=== PATIENT | female | born 1945 | race Caucasian/White ===

== ENCOUNTER 2016-10-10 10:21 | Emergency (ER) ==
--- NOTE | 2016-10-10 11:07 | PROVIDER DOCUMENTATION ---
HPI-Syncope/Dizziness - General Source: patient - History of Present Illness-Syncope/Dizzy Prior Episodes: reports: no prior history Onset/Duration: reports: this morning Timing: reports: gone now Position/Activity at time of episode: reports: sitting, standing Symptoms prior to episode: reports: lightheaded. denies: headache, visual disturbance, nausea/vomiting, chest pain, racing heart, abdominal pain, back pain, confusion, diaphoresis, injury, recent head trauma, rapid heart beat Context: reports: other (dizzy and off balance a little) Loss of Consciousness: no loss of consciousness Location of injury. (If syncope resulted in an injury.): reports: none Current Symptoms: reports: none/feels normal Recently Seen Here or By Another Healthcare Provider: No - Dizziness Severity in ED: reports: mild Dizziness Related Current/Associated Symptoms: reports: none/feels normal Any recent trauma/injury?: reports: none Modifying Factors: improves with: nothing Patient usually:: reports: walks without assistance <Jenny Rooney - Last Filed: 10/10/16 12:24> <Twin Bradley I - Last Filed: 10/10/16 12:38> - General Chief Complaint: Dizziness Stated Complaint: B/P PROBLEMS Time Seen by Provider: 10/10/16 10:43 Allergies/Adverse Reactions: Patient Allergies Allergy/AdvReac Type Severity Reaction Status Date / Time Penicillins Allergy RASH Verified 10/10/16 10:35 Home Medications: Home Medication List Medication Instructions Recorded Confirmed Last Taken Type Levofloxacin [Levaquin] 750 mg PO DAILY #10 tablet 10/10/16 Unknown Rx Otc Allergy Med 10/10/16 Unknown History - History of Present Illness-Syncope/Dizzy Nature of Presenting Problem: Pt is 71 y/o F presents to the ED with dizziness. Pt states she woke this am with dizziness. Pt denies hx of HTN. Pt state when going to the bathroom this am she felt a little of balance. Pt denies falling. Pt states having a ear problem. Pt states after eating breakfast this am she was fine. Pt states going to job's nurse and the nurse told her, her BP was elevated. (Jenny Rooney) Review of Systems - Adult - REVIEW OF SYSTEMS - ADULT Constitutional: reports: no symptoms reported Eyes: reports: no symptoms reported Ears, Nose, Mouth & Throat: reports: no symptoms reported Cardiovascular: reports: no symptoms reported Respiratory: reports: no symptoms reported Gastrointestinal: reports: no symptoms reported Genitourinary: reports: no symptoms reported Musculoskeletal: reports: no symptoms reported Integumentary: reports: no symptoms reported Neurological: reports: dizziness/vertigo (dizziness). denies: headache/ migraines, syncope Psychiatric: reports: no symptoms reported Endocrine: reports: no symptoms reported Hematologic/Lymphatic: reports: no symptoms reported Allergic/Immunologic: reports: no symptoms reported All Other Systems: Reviewed and Negative <Margarita Rooneyomi - Last Filed: 10/10/16 12:24> Past History - Adult - PAST MEDICAL HISTORY-ADULT Review of Records: reports: Nursing Assessment Review, Medications Reviewed, Social history reviewed & non-contributory. Major Childhood Illnesses: reports: denies history Cardiovascular: reports: denies history Respiratory: reports: denies history Gastrointestinal: reports: denies history Obstetrical/Gynecological: reports: denies history Genitourinary: reports: denies history Musculoskeletal: reports: denies history Neurological: reports: denies history Endocrine/Immune: reports: denies history Other Conditions: reports: denies history - PRIOR SURGERIES/PROCEDURES Surgical/Procedure History: reports: reviewed, not pertinent - IMMUNIZATION STATUS Childhood Immunizations: See Nurse Assessment Flu Vaccine: See Nurse Assessment - FAMILY HISTORY Family History: reviewed, not pertinent - SOCIAL HISTORY Smoking: denies Substance Use: denies Living Situation: family <Jenny Rooney - Last Filed: 10/10/16 12:24> Physical Exam-General - PHYSICAL EXAM-ADULT Initial Vital Signs Reviewed: Yes - CONSTITUTIONAL General Appearance: appears well, alert, no apparent distress - EYES Eyes: PERRL/EOMI, pink conjunctivae, fundi clear, no AV nicking - HEAD, EARS, NOSE, MOUTH & THROAT HENMT: normocephalic/atraumatic, moist mucous membranes, normal ENT inspection, TMs normal, pharynx normal - NECK Neck: non-tender, full range of motion, supple, normal inspection - RESPIRATORY Respiratory: chest non-tender, lungs clear, normal breath sounds, no pleuratic chest pain, no respiratory distress, no accessory muscle use - CARDIOVASCULAR Cardiovascular: normal peripheral pulses, regular rate, rhythm, no edema, no gallop, no JVD, no murmur - GASTROINTESTINAL (ABDOMEN) Abdominal Exam: normal bowel sounds, non tender, soft, no organomegaly, no pulsatile mass - LYMPHATIC Lymphatic: no adenopathy - MUSCULOSKELETAL Back Exam: normal inspection, no CVA tenderness, no vertebral tenderness Extremity: normal range of motion, non-tender, normal gait, normal inspection, no pedal edema, no calf tenderness, normal capillary refill - SKIN Integumentary: normal color, normal turgor, warm/dry - NEUROLOGIC Neurologic: grossly normal - PSYCHIATRIC Psych/Mental Status: normal mood/affect, oriented x 3 <Jenny Rooney - Last Filed: 10/10/16 12:24> Progress - EKG 1 Time of EKG reading by physician:: 10:46 EKG Read and Signed by:: Twin Bradley EKG Interpretation (*Must complete 3 of following elements*): Abnormal ( anterior infarct, age undetermined) Rate: 91 Rhythm: normal sinus rhythm Comments: possible inferior infarct, age undetermined - CT/MRI 1 CT Study: Head Impression: Abnormal CT Results: microvasc changes, no acute abn <Jenny Rooney - Last Filed: 10/10/16 12:24> <Twin Bradley I - Last Filed: 10/10/16 12:38> - PLAN OF CARE/RESULTS Progress/Plan/Lab Results: Orders Category Date Time Status Cardiac Monitoring DIRECTED Care 10/10/16 10:43 Active Finger Stick Blood Sugar (ED) DIRECTED Care 10/10/16 10:43 Active Oxygen Therapy- ED Nursing DIRECTED Care 10/10/16 10:43 Active Saline Loc NOW Care 10/10/16 10:43 Active HEAD W/O CONTRAST [CT] Stat Exams 10/10/16 10:45 Taken ABG [RESP] Routine Lab 10/10/16 10:43 Ordered ALCOHOL BLOOD Stat Lab 10/10/16 10:46 Ordered CBC WITH ELECTRONIC DIFF [HEME] Stat Lab 10/10/16 10:46 Ordered CK PROFILE [SP CHEM] Stat Lab 10/10/16 10:46 Ordered COMPREHENSIVE METABOLIC PANEL [CHEM] Stat Lab 10/10/16 10:46 Ordered LACTATE, PLASMA [CHEM] Stat Lab 10/10/16 10:46 Ordered PT [PROTIME WITH INR PL] [COAG] Stat Lab 10/10/16 10:[address] [COAG] Stat Lab 10/10/16 10:55 Ordered TROPONIN T Stat Lab 10/10/16 10:46 Ordered URINALYSIS W/POSS RFLX CULT [URINALYSIS] Stat Lab 10/10/16 10:43 Uncollected URINE DRUG SCREEN Stat Lab 10/10/16 10:43 Uncollected Pulse Oximetry Stat Oth 10/10/16 10:43 Active EKG [EKG] Stat Ther 10/10/16 10:43 Ordered Vital Signs - 24 hr 10/10/16 10:28 Temperature 97.5 F L Pulse Rate 96 H Respiratory 20 Rate Blood Pressure 186/097 O2 Sat by Pulse 97 Oximetry Laboratory Tests 10/10/16 10/10/16 11:15 11:20 WBC 8.77 RBC 4.94 Hgb 14.7 Hct 44.1 MCV 89.3 MCH 29.8 MCHC 33.3 RDW Std Deviation 13.0 Plt Count 227 MPV 11.0 H Immature Gran % (Auto) 0.1 Lymph % (Auto) 23.4 Emanuel % (Auto) 4.3 Eos % (Auto) 0.6 Baso % (Auto) 0.5 Immature Gran # (Auto) 0.01 Lymph # (Auto) 2.05 Emanuel # (Auto) 0.38 Eos # (Auto) 0.05 Baso # (Auto) 0.04 Urine Source CLEAN CATCH Laboratory Tests 10/10/16 10/10/16 10/10/16 11:12 11:15 11:15 WBC RBC Hgb Hct MCV MCH MCHC RDW Std Deviation Plt Count MPV Immature Gran % (Auto) Neut % (Auto) Lymph % (Auto) Emanuel % (Auto) Eos % (Auto) Baso % (Auto) Immature Gran # (Auto) Neut # (Auto) Lymph # (Auto) Emanuel # (Auto) Eos # (Auto) Baso # (Auto) PT INR APTT (Factor Assay) Sodium Potassium Chloride Carbon Dioxide Anion Gap BUN Creatinine Estimated GFR/1.73 m2 BUN/Creatinine Ratio Glucose Calculated Osmolality Calcium Total Bilirubin AST ALT Alkaline Phosphatase Creatine Kinase Troponin T Total Protein Albumin Globulin Albumin/Globulin Ratio Plasma Lactate Urine Source CLEAN CATCH Cancelled Urine Color YELLOW Cancelled Urine Clarity SLIGHTLY CLOUDY A Urine Turbidity Cancelled Urine pH 7.0 Cancelled Ur Specific Roberts 1.010 Cancelled Urine Protein NEGATIVE Cancelled Ur Glucose (Stick) Cancelled Urine Ketones NEGATIVE Ur Ketones (Stick) Cancelled Urine Blood NEGATIVE Cancelled Urine Nitrite NEGATIVE Cancelled Urine Bilirubin NEGATIVE Cancelled Urine Urobilinogen NORMAL Urobilinogen Dipstick Cancelled Urine Leukocytes Cancelled Urine WBC (Auto) Cancelled Urine RBC (Auto) Cancelled U Epithel Cells (Auto) Cancelled Urine Bacteria (Auto) Cancelled Urine WBC 1+ A Urine Microscopic WBC 10-20 A Ur Epithelial Cells >10 A Urine Bacteria 2+ Urine Glucose NEGATIVE Urine Opiates Screen NONE DETECTED Ur Oxycodone Screen NONE DETECTED Urine Methadone Screen NONE DETECTED Ur Barbituates Screen NONE DETECTED Ur Tricyclics Screen NONE DETECTED Ur Phencyclidine Scrn NONE DETECTED Ur Amphetamines Screen NONE DETECTED U Methamphetamines Scrn NONE DETECTED Urine MDMA Screen NONE DETECTED U Benzodiazepines Scrn NONE DETECTED Urine Cocaine Screen NONE DETECTED U Cannabinoids Screen NONE DETECTED Plasma/Serum Ethyl Alc 10/10/16 10/10/16 10/10/16 11:20 11:20 11:20 WBC 8.77 RBC 4.94 Hgb 14.7 Hct 44.1 MCV 89.3 MCH 29.8 MCHC 33.3 RDW Std Deviation 13.0 Plt Count 227 MPV 11.0 H Immature Gran % (Auto) 0.1 Neut % (Auto) 71.1 Lymph % (Auto) 23.4 Emanuel % (Auto) 4.3 Eos % (Auto) 0.6 Baso % (Auto) 0.5 Immature Gran # (Auto) 0.01 Neut # (Auto) 6.24 Lymph # (Auto) 2.05 Emanuel # (Auto) 0.38 Eos # (Auto) 0.05 Baso # (Auto) 0.04 PT INR APTT (Factor Assay) Sodium 142 Potassium 4.1 Chloride 106 Carbon Dioxide 27 Anion Gap 9 BUN 15 Creatinine 0.7 Estimated GFR/1.73 m2 > 60 BUN/Creatinine Ratio 21 Glucose 96 Calculated Osmolality 284 Calcium 9.6 Total Bilirubin 0.40 AST 19 ALT 13 Alkaline Phosphatase 61 Creatine Kinase 135 Troponin T Total Protein 7.3 Albumin 4.5 Globulin 3.0 Albumin/Globulin Ratio 2.0 Plasma Lactate Urine Source Urine Color Urine Clarity Urine Turbidity Urine pH Ur Specific Roberts Urine Protein Ur Glucose (Stick) Urine Ketones Ur Ketones (Stick) Urine Blood Urine Nitrite Urine Bilirubin Urine Urobilinogen Urobilinogen Dipstick Urine Leukocytes Urine WBC (Auto) Urine RBC (Auto) U Epithel Cells (Auto) Urine Bacteria (Auto) Urine WBC Urine Microscopic WBC Ur Epithelial Cells Urine Bacteria Urine Glucose Urine Opiates Screen Ur Oxycodone Screen Urine Methadone Screen Ur Barbituates Screen Ur Tricyclics Screen Ur Phencyclidine Scrn Ur Amphetamines Screen U Methamphetamines Scrn Urine MDMA Screen U Benzodiazepines Scrn Urine Cocaine Screen U Cannabinoids Screen Plasma/Serum Ethyl Alc 10/10/16 10/10/16 10/10/16 11:20 11:20 11:20 WBC RBC Hgb Hct MCV MCH MCHC RDW Std Deviation Plt Count MPV Immature Gran % (Auto) Neut % (Auto) Lymph % (Auto) Emanuel % (Auto) Eos % (Auto) Baso % (Auto) Immature Gran # (Auto) Neut # (Auto) Lymph # (Auto) Emanuel # (Auto) Eos # (Auto) Baso # (Auto) PT 13.3 INR 0.98 APTT (Factor Assay) 29.8 Sodium Potassium Chloride Carbon Dioxide Anion Gap BUN Creatinine Estimated GFR/1.73 m2 BUN/Creatinine Ratio Glucose Calculated Osmolality Calcium Total Bilirubin AST ALT Alkaline Phosphatase Creatine Kinase Troponin T < 0.010 Total Protein Albumin Globulin Albumin/Globulin Ratio Plasma Lactate 0.8 Urine Source Urine Color Urine Clarity Urine Turbidity Urine pH Ur Specific Roberts Urine Protein Ur Glucose (Stick) Urine Ketones Ur Ketones (Stick) Urine Blood Urine Nitrite Urine Bilirubin Urine Urobilinogen Urobilinogen Dipstick Urine Leukocytes Urine WBC (Auto) Urine RBC (Auto) U Epithel Cells (Auto) Urine Bacteria (Auto) Urine WBC Urine Microscopic WBC Ur Epithelial Cells Urine Bacteria Urine Glucose Urine Opiates Screen Ur Oxycodone Screen Urine Methadone Screen Ur Barbituates Screen Ur Tricyclics Screen Ur Phencyclidine Scrn Ur Amphetamines Screen U Methamphetamines Scrn Urine MDMA Screen U Benzodiazepines Scrn Urine Cocaine Screen U Cannabinoids Screen Plasma/Serum Ethyl Alc (Jenny oRoney) Departure <Jenny Rooney - Last Filed: 10/10/16 12:24> - Departure Time of Disposition Order: 12:37 Certified Medical Emergency: Emergent <Twin Bradley I - Last Filed: 10/10/16 12:38> - Departure DIAGNOSIS: Dizziness, Acute labyrinthitis Disposition: HOME 01 Condition: Stable Prescriptions: Levofloxacin [Levaquin] 750 mg PO DAILY #10 tablet Referrals: None,PCP [Primary Care Provider] - Attestation - Scribe Verification/Attestation Scribe:: Jenny Rooney Acting as Scribe for:: Twin Bradley Scribe documention review:: This chart was documented by a scribe and accurately reflects the service the provider performed and the decisions made by the provider. <Jenny Rooney - Last Filed: 10/10/16 12:24> - Scribe Verification/Attestation Scribe:: Twin Bradley I Scribe documention review:: This chart was documented by a scribe and accurately reflects the service the provider performed and the decisions made by the provider. - Physician/ BE Attestation Patient care was provided by Advanced Practice Provider:: Yes Advanced Practice Provider documentation review:: The Mid-level provider documentation, treatment plan and medical decision making was reviewed by the physician who agrees with all treatment and medical decision making by the MLP. The physician spent face to face time with patient:: Yes Advanced Practice Provider documentation review:: The physician spent face to face time with this patient and agrees with all MLP documentation, treatment, and medical decision making by the MLP. See provider notes for further information. <Twin Bradley I - Last Filed: 10/10/16 12:38> Physician Attestation - Physician Attestation I, the provider, attest to the following statement:: Twin Bradley Physician documentation Attestation:: This documentation recorded by the scribe accurately reflects the service I personally performed and the decisions made by me. <Twin Bradley I - Last Filed: 10/10/16 12:38>
[2016-10-10 11:38] LABS: MANUAL DIFF NEEDED? NO
[2016-10-10 11:49] LABS: BASO% 0.5 % (0.0-0.8); EOS# 0.05 X1000 (0.0-0.7); EOS% 0.6 % (0.0-10.0); HEMATOCRIT 44.1 % (37.0-47.0); HEMOGLOBIN 14.7 g/dL (12.0-16.0); IMM GRAN# 0.01 X1000 (0.0-0.04); IMM GRAN% 0.1 % (0.0-0.5); LYMPH# 2.05 X1000 (1.2-3.4); LYMPH% 23.4 % (20.5-51.1); MCH 29.8 PG (27-31); MCHC 33.3 g/dL (33-37); MCV 89.3 FL (81-99); MONO# 0.38 X1000 (0.11-0.59); MONO% 4.3 % (1.7-9.3); PLT 227 X1000 (130-400); RBC 4.94 XMIL (4.2-5.4)
[2016-10-10 11:50] LABS: UR AMPHETAMINES QUAL NONE DETECTED (NONE DETECT); UR BARBITUATES QUAL NONE DETECTED (NONE DETECT); UR BENZODIAZEPIN QUAL NONE DETECTED (NONE DETECT); UR CANNABINOIDS QUAL NONE DETECTED (NONE DETECT); UR COCAINE QUAL NONE DETECTED (NONE DETECT); UR MDMA QUAL NONE DETECTED (NONE DETECT); UR METHADONE QUAL NONE DETECTED (NONE DETECT); UR METHAMPHETAMINE QUAL NONE DETECTED (NONE DETECT); UR OPIATES QUAL NONE DETECTED (NONE DETECT); UR OXYCODONE QUAL NONE DETECTED (NONE DETECT); UR PCP QUAL NONE DETECTED (NONE DETECT); UR TCA QUAL NONE DETECTED (NONE DETECT)
[2016-10-10 11:57] LABS: URINE SOURCE CLEAN CATCH
[2016-10-10 11:58] LABS: BILIRUBIN URINE NEGATIVE (NEGATIVE); BLOOD URINE NEGATIVE (NEGATIVE); CLARITY SLIGHTLY CLOUDY (CLEAR); COLOR YELLOW; GLUCOSE URINE NEGATIVE (NEGATIVE); LEUKOCYTES URINE 1+ (NEGATIVE); NITRITE URINE NEGATIVE (NEGATIVE); PROTEIN URINE NEGATIVE (NEGATIVE); UROBILINOGEN URINE NORMAL
[2016-10-10 12:00] LABS: URINE EPITHELIAL CELLS >10 /HPF (<10)
[2016-10-10 12:01] LABS: URINE CULTURE PL NEEDED? YES
[2016-10-10 12:05] LABS: NEUT% 71.1 % (42.2-75.2)
[2016-10-10 12:06] LABS: AGAP 9; ALBUMIN 4.5 g/dL (3.5-5.0); ALKALINE PHOSPHATASE 61 U/L (32-104); BUN 15 mg/dL (8-22); CALCIUM 9.6 mg/dL (8.8-10.2); CHLORIDE 106 mmol/L (98-107); CK PROFILE 135 U/L (24-173); COSMO 284; GOT 19 U/L (10-30); GPT 13 U/L (10-36); POTASSIUM 4.1 mmol/L (3.5-5.1); SODIUM 142 mmol/L (136-145); TCO2 27 mmol/L (25-35); TOTAL PROTEIN 7.3 g/dL (6.3-8.3)
--- NOTE | 2016-10-10 12:12 | Diag Imaging Result Document ---
PROCEDURE NAME: HEAD W/O CONTRAST - 10/10/[address] SCAN OF THE BRAIN: INDICATION: Dizziness. Family history of strokes. COMPARISON: No comparison study. FINDINGS: No extra-axial collections are appreciated. No hydrocephalus, midline shift, or mass effect is identified. There is no evidence for acute infarct or hemorrhage. Deep white matter and subcortical hypodensity are noted which is a nonspecific finding but may indicate microvascular disease. IMPRESSION: 1. Mild subcortical and deep white matter hypodensity is noted and may represent microvascular disease. 2. No acute abnormalities are appreciated.
[2016-10-10 12:14] LABS: INR 0.98 (0.86-1.15); PROTIME 13.3 Seconds (12.1-15.5); PTT PL 29.8 Seconds (22.6-43.9)
--- NOTE | 2016-10-10 12:24 | EKG Report ---
Test Performed on : 10/10/2016 10:46:05 AM Test Reason : AMS Blood Pressure : / mmHG Vent. Rate : 091 BPM Atrial Rate : 091 BPM P-R Int : 126 ms QRS Dur : 096 ms QT Int : 374 ms P-R-T Axes : 066 020 010 degrees QTc Int : 460 ms Normal sinus rhythm. Possible Inferior infarct , age undetermined Anterior infarct , age undetermined Abnormal ECG No previous ECGs available Unconfirmed Result
[2016-10-10 12:55] VITALS: BP 167/078
== END 2016-10-10 12:55 | disposition home or self-care (01) ==
LOC: P.ED 10:21
DX: H83.09 Labyrinthitis, unspecified ear (principal); R42 Dizziness and giddiness; R94.31 Abnormal electrocardiogram [ECG] [EKG]
CPT/HCPCS: 36415; 70450; 80053; 80305; 81001; 82550; 82948; 83605; 84484; 85025; 85610; 85730; 87088; 93005; G0480; 80320